=== PATIENT | female | born 1985 | race Caucasian/White ===

== ENCOUNTER 2018-10-16 16:56 | Emergency (ER) | payer BC, OTHER ==
[~2018-10-16] VITALS: Ht 167.6 cm; Wt 61.2 kg
[~2018-10-16 16:56] MED LIST: JULEBER 28 DAY1 EACH PO; MACROBID 100 M100 MG PO; PYRIDIUM200 MG PO
[2018-10-16] MEDS ORDERED: FLAGYL500 MG PO (21:37)
[2018-10-16] MEDS ORDERED: ZOFRAN8 MG PO (21:37)
[2018-10-16] MEDS ORDERED: CIPRO500 MG PO (21:37)
== END 2018-10-16 22:18 | disposition home or self-care (01) ==
LOC: ED 16:56
DX: K50.00 Crohn's disease of small intestine without complications (principal); Z88.0 Allergy status to penicillin; Z79.899 Other long term (current) drug therapy
CPT/HCPCS: 74177; 80053; 81001; 83690; 84703; 85025; 99284-25; J1170; J2405; J2550; J7030; Q9967